=== PATIENT | female | born 1985 | race Caucasian/White ===

== ENCOUNTER → 2016-12-23 | Outpatient (CLI) | payer BC ==
[2013-12-12 07:33] VITALS: BP 110/76
--- NOTE | 2016-12-23 11:41 | US ---
HISTORY: Hematuria Study: Bilateral renal sonogram Comparison: None Findings: The right kidney measured 9.4 x 5.1 x 5.3 centimeters. The left kidney measured 9.7 x 4.3 x 5.9 cent imeters. Cortical thickness and cortical echogenicity were normal bilaterally. No solid masses, hydr onephrosis, stones, or perinephric fluid collections were identified. IMPRESSION: No significant abnormality identified Reported By:
== END ==
LOC: RAD 09:20
PROVIDERS: ATTEND Nurse Practitioner Family
DX: R31.9 Hematuria, unspecified (principal); R60.1 Generalized edema; R63.4 Abnormal weight loss; D72.820 Lymphocytosis (symptomatic)
CPT/HCPCS: 76770

== ENCOUNTER → 2016-12-28 | Outpatient (CLI) | payer BC ==
[2013-12-12 07:33] VITALS: BP 110/76
== END ==
LOC: RAD 12:54
PROVIDERS: ATTEND Nurse Practitioner Family
DX: R31.9 Hematuria, unspecified (principal); R60.0 Localized edema; R63.5 Abnormal weight gain; D72.820 Lymphocytosis (symptomatic)
CPT/HCPCS: 93306

== ENCOUNTER 2022-04-15 06:31 | Inpatient (IN) ==
[~2022-04-15 06:31] MED LIST: ANCEF VIAL 1 GRAM IVP ONE; D5 1/2 NS 1,000 ML 1,000 ML IV SCH
[2022-04-15] MEDS ORDERED: XYLOCAINE 1 % (PLAIN) ONE (06:39)
[2022-04-15] MEDS ORDERED: LR 1,000 ML IV 1,000 ML IV ONE ×2 (06:40→08:06)
[2022-04-15] MEDS ORDERED: D5 1/2 NS 1,000 mL + PITOCIN 20 UNITS/L IV 20 UNITS/1,000 ML BAG IV ONE (06:40)
[2022-04-15] MEDS ORDERED: DILAUDID INJ ONE (06:42)
[2022-04-15] MEDS ORDERED: PITOCIN ONE (06:45)
[2022-04-15] MEDS ORDERED: MARCAINE SPINAL ONE (06:45)
[2022-04-15] MEDS ORDERED: ZOFRAN INJ 4 MG VIAL ONE (06:45)
[2022-04-15] MEDS ORDERED: PEPCID 20 MG VIAL ONE (06:45)
[2022-04-15] MEDS ORDERED: REGLAN INJ 10 MG VIAL ONE (06:45)
[2022-04-15] MEDS ORDERED: TORADOL 30 MG VIAL ONE (06:45)
[2022-04-15] MEDS ORDERED: DIPRIVAN VIAL 20 ML ONE (06:45)
[2022-04-15] MEDS ORDERED: OFIRMEV IV 1000 MG VIAL 1,000 MG/100 ML VIAL IV ONE (06:46)
[2022-04-15] MEDS ORDERED: BARHEMSYS INJ ONE (06:56)
[2022-04-15] MEDS ORDERED: VERSED ONE (07:19)
[2022-04-15] MEDS ORDERED: NEO-SYNEPHRINE INJ ONE (07:42)
[2022-04-15] MEDS ORDERED: EPHEDRINE SULFATE INJ ONE (07:42)
[2022-04-15] MEDS ORDERED: ANCEF VIAL 1 GRAM ONE (08:05)
[2022-04-15] MEDS ORDERED: NS 100 ML IV 100 ML ONE (08:05)
[2022-04-15] MEDS ORDERED: ZOFRAN INJ 4 MG VIAL IVP PRN (09:06)
[2022-04-15] MEDS ORDERED: REGLAN INJ 10 MG VIAL IVP PRN ×2 (09:06→09:33)
[2022-04-15] MEDS ORDERED: BARHEMSYS INJ IVP PRN (09:06)
[2022-04-15] MEDS ORDERED: PHENERGAN INJ 25 MG IM PRN (09:06)
[2022-04-15] MEDS ORDERED: BENADRYL INJ 50 MG VIAL IVP PRN ×2 (09:06→09:33)
[2022-04-15] MEDS ORDERED: MYLICON TAB 80 MG CHEW PO PRN (09:33)
[2022-04-15] MEDS ORDERED: PERCOCET TAB 5/325 MG PO PRN (09:33)
[2022-04-15] MEDS ORDERED: ADACEL or BOOSTRIX TDaP VACCINE IM ONE (09:33)
[2022-04-15] MEDS ORDERED: D5 1/2 NS 1,000 ML 1,000 ML with PITOCIN 20 UNITS IV SCH ×2 (09:33)
[2022-04-15] MEDS ORDERED: NARCAN INJ IVP PRN (09:33)
[2022-04-15] MEDS ORDERED: TORADOL 30 MG VIAL IVP PRN (09:33)
[2022-04-15] MEDS ORDERED: PRENATAL PLUS PO SCH ×2 (09:33→21:00)
[2022-04-15] MEDS: BARHEMSYS INJ ONE ×2 (09:35→11:45)
[2022-04-15] MEDS: ZOFRAN INJ 4 MG VIAL IVP PRN ×2 (11:12→13:36)
[2022-04-15] MEDS ORDERED: ANTIVERT TAB 25 MG PO PRN (13:01)
[2022-04-15] MEDS ORDERED: D5 1/2 NS 1,000 ML 1,000 ML IV ONE (14:46)
[2022-04-15] MEDS ORDERED: ULTRAM PO PRN (15:33)
[2022-04-15] MEDS: FERROUS GLUCONATE PO SCH (17:08)
[2022-04-15] MEDS ORDERED: COLACE CAP 100 MG PO ONE (19:39)
[2022-04-15] MEDS: COLACE CAP 100 MG PO SCH (20:56)
[2022-04-15] MEDS: MOTRIN TAB 800 MG PO PRN (20:57)
[2022-04-15] MEDS: BACTROBAN TOPICAL OINT TOP SCH (21:52)
[2022-04-16] MEDS: MOTRIN TAB 800 MG PO PRN (04:10)
[2022-04-16] MEDS: BACTROBAN TOPICAL OINT TOP SCH (05:50)
[2022-04-16] MEDS: FERROUS GLUCONATE PO SCH (06:06)
[2022-04-16 06:24] LABS: HEMOGLOBIN 9.8 g/dL (12.0-16.0)
[2022-04-16] MEDS ORDERED: ADACEL or BOOSTRIX TDaP VACCINE IM ONE (08:30)
[2022-04-16] MEDS: COLACE CAP 100 MG PO SCH (08:57)
[2022-04-16] MEDS ORDERED: CELEXA PO SCH (09:00)
[2022-04-16] MEDS ORDERED: PREVACID PO SCH (09:00)
[2022-04-16 11:07] VITALS: BP 123/78
== END 2022-04-16 10:40 | disposition home or self-care (01) | DRG 788 ==
LOC: LD 06:31 → MED/SURG 09:34
PROVIDERS: ADMIT Specialist; ATTEND Specialist
DX: O99.613 Diseases of the digestive system complicating pregnancy, third trimester; O99.013 Anemia complicating pregnancy, third trimester; Z3A.39 39 weeks gestation of pregnancy; D50.8 Other iron deficiency anemias; O34.211 Maternal care for low transverse scar from previous cesarean delivery; K21.9 Gastro-esophageal reflux disease without esophagitis; N85.8 Other specified noninflammatory disorders of uterus; F41.8 Other specified anxiety disorders; Z37.0 Single live birth; O99.343 Other mental disorders complicating pregnancy, third trimester